=== PATIENT | female | born 1960 | race Caucasian/White ===

== ENCOUNTER 2019-04-29 13:40 | Outpatient (CLI) | payer BC | END 2019-04-29 23:59 | disposition home or self-care (01) | LOC: WOUND 13:40 | PROVIDERS: ATTEND Family Medicine | DX: T81.31XA Disruption of external operation (surgical) wound, not elsewhere classified, initial encounter (principal); C43.9 Malignant melanoma of skin, unspecified; I51.89 Other ill-defined heart diseases; E66.09 Other obesity due to excess calories; Z68.27 Body mass index [BMI] 27.0-27.9, adult; Z85.820 Personal history of malignant melanoma of skin; Y83.8 Other surgical procedures as the cause of abnormal reaction of the patient, or of later complication, without mention of misadventure at the time of the procedure; Y92.89 Other specified places as the place of occurrence of the external cause | CPT/HCPCS: 97597; 99204 ==

== ENCOUNTER → 2019-05-02 | Outpatient (CLI) | payer BC | END | disposition home or self-care (01) | LOC: WOUND 14:30 | PROVIDERS: ATTEND Internal Medicine | DX: T81.31XD Disruption of external operation (surgical) wound, not elsewhere classified, subsequent encounter (principal); I51.89 Other ill-defined heart diseases; C43.9 Malignant melanoma of skin, unspecified; E66.09 Other obesity due to excess calories; Z68.27 Body mass index [BMI] 27.0-27.9, adult; Z85.820 Personal history of malignant melanoma of skin; Y83.8 Other surgical procedures as the cause of abnormal reaction of the patient, or of later complication, without mention of misadventure at the time of the procedure | CPT/HCPCS: 97605 ==

== ENCOUNTER 2019-05-05 12:45 | Outpatient (CLI) | payer BC | END 2019-05-05 23:59 | disposition home or self-care (01) | LOC: WOUND 12:45 | PROVIDERS: ATTEND Internal Medicine Cardiovascular Disease | DX: T81.31XD Disruption of external operation (surgical) wound, not elsewhere classified, subsequent encounter (principal); I51.89 Other ill-defined heart diseases; C43.9 Malignant melanoma of skin, unspecified; E66.09 Other obesity due to excess calories; Z68.27 Body mass index [BMI] 27.0-27.9, adult; Z85.820 Personal history of malignant melanoma of skin; Y83.8 Other surgical procedures as the cause of abnormal reaction of the patient, or of later complication, without mention of misadventure at the time of the procedure | CPT/HCPCS: 97605 ==

== ENCOUNTER → 2019-05-09 | Outpatient (CLI) | payer BC | END | disposition home or self-care (01) | LOC: WOUND 14:27 | PROVIDERS: ATTEND Internal Medicine | DX: T81.31XD Disruption of external operation (surgical) wound, not elsewhere classified, subsequent encounter (principal); I51.89 Other ill-defined heart diseases; C43.9 Malignant melanoma of skin, unspecified; E66.09 Other obesity due to excess calories; Z68.27 Body mass index [BMI] 27.0-27.9, adult; Z85.820 Personal history of malignant melanoma of skin; Y83.8 Other surgical procedures as the cause of abnormal reaction of the patient, or of later complication, without mention of misadventure at the time of the procedure | CPT/HCPCS: 97605 ==

== ENCOUNTER → 2019-05-11 | Outpatient (CLI) | payer BC | END | disposition home or self-care (01) | LOC: WOUND 13:04 | PROVIDERS: ATTEND Internal Medicine | DX: T81.31XD Disruption of external operation (surgical) wound, not elsewhere classified, subsequent encounter (principal); C43.9 Malignant melanoma of skin, unspecified; I51.89 Other ill-defined heart diseases; E66.09 Other obesity due to excess calories; Z68.27 Body mass index [BMI] 27.0-27.9, adult; Z85.820 Personal history of malignant melanoma of skin; Y83.8 Other surgical procedures as the cause of abnormal reaction of the patient, or of later complication, without mention of misadventure at the time of the procedure | CPT/HCPCS: 99212 ==

== ENCOUNTER → 2019-05-13 | Outpatient (CLI) | payer BC | END | disposition home or self-care (01) | LOC: WOUND 14:01 | PROVIDERS: ATTEND Family Medicine | DX: T81.31XD Disruption of external operation (surgical) wound, not elsewhere classified, subsequent encounter (principal); C43.9 Malignant melanoma of skin, unspecified; I51.89 Other ill-defined heart diseases; E66.09 Other obesity due to excess calories; Z68.27 Body mass index [BMI] 27.0-27.9, adult; Z88.0 Allergy status to penicillin; Y83.8 Other surgical procedures as the cause of abnormal reaction of the patient, or of later complication, without mention of misadventure at the time of the procedure | CPT/HCPCS: 97597 ==

== ENCOUNTER 2019-05-20 09:30 | Outpatient (CLI) | payer BC | END 2019-05-20 23:59 | disposition home or self-care (01) | LOC: WOUND 09:30 | PROVIDERS: ATTEND Family Medicine | DX: T81.31XD Disruption of external operation (surgical) wound, not elsewhere classified, subsequent encounter (principal); C43.9 Malignant melanoma of skin, unspecified; I51.89 Other ill-defined heart diseases; E66.09 Other obesity due to excess calories; Z68.27 Body mass index [BMI] 27.0-27.9, adult; Z88.0 Allergy status to penicillin; Y83.8 Other surgical procedures as the cause of abnormal reaction of the patient, or of later complication, without mention of misadventure at the time of the procedure | CPT/HCPCS: 97602 ==

== ENCOUNTER → 2019-05-27 | Outpatient (CLI) | payer BC | END | disposition home or self-care (01) | LOC: WOUND 12:51 | PROVIDERS: ATTEND Family Medicine | DX: T81.31XD Disruption of external operation (surgical) wound, not elsewhere classified, subsequent encounter (principal); C43.9 Malignant melanoma of skin, unspecified; I51.89 Other ill-defined heart diseases; E66.09 Other obesity due to excess calories; Z68.27 Body mass index [BMI] 27.0-27.9, adult; Z88.0 Allergy status to penicillin; Y83.8 Other surgical procedures as the cause of abnormal reaction of the patient, or of later complication, without mention of misadventure at the time of the procedure | CPT/HCPCS: 17250 ==

== ENCOUNTER 2019-06-03 13:38 | Outpatient (CLI) | payer BC | END 2019-06-03 23:59 | disposition home or self-care (01) | LOC: WOUND 13:38 | PROVIDERS: ATTEND Family Medicine | DX: T81.31XD Disruption of external operation (surgical) wound, not elsewhere classified, subsequent encounter (principal); S31.000D Unspecified open wound of lower back and pelvis without penetration into retroperitoneum, subsequent encounter; C43.9 Malignant melanoma of skin, unspecified; I51.89 Other ill-defined heart diseases; E66.09 Other obesity due to excess calories; Z68.27 Body mass index [BMI] 27.0-27.9, adult; Y83.8 Other surgical procedures as the cause of abnormal reaction of the patient, or of later complication, without mention of misadventure at the time of the procedure; X58.XXXD Exposure to other specified factors, subsequent encounter | CPT/HCPCS: 99213 ==

== ENCOUNTER 2019-06-10 12:45 | Outpatient (CLI) | payer BC | END 2019-06-10 23:59 | disposition home or self-care (01) | LOC: WOUND 12:45 | PROVIDERS: ATTEND Family Medicine | DX: T81.31XD Disruption of external operation (surgical) wound, not elsewhere classified, subsequent encounter (principal); S31.000D Unspecified open wound of lower back and pelvis without penetration into retroperitoneum, subsequent encounter; C43.9 Malignant melanoma of skin, unspecified; I51.89 Other ill-defined heart diseases; E66.09 Other obesity due to excess calories; Z68.27 Body mass index [BMI] 27.0-27.9, adult; X58.XXXD Exposure to other specified factors, subsequent encounter; Y83.8 Other surgical procedures as the cause of abnormal reaction of the patient, or of later complication, without mention of misadventure at the time of the procedure | CPT/HCPCS: 97602; 99214 ==

== ENCOUNTER → 2019-06-17 | Outpatient (CLI) | payer BC | END | disposition home or self-care (01) | LOC: WOUND 13:06 | PROVIDERS: ATTEND Family Medicine | DX: T81.31XD Disruption of external operation (surgical) wound, not elsewhere classified, subsequent encounter (principal); C43.9 Malignant melanoma of skin, unspecified; I51.89 Other ill-defined heart diseases; L82.1 Other seborrheic keratosis; E66.09 Other obesity due to excess calories; Z68.27 Body mass index [BMI] 27.0-27.9, adult; Y83.8 Other surgical procedures as the cause of abnormal reaction of the patient, or of later complication, without mention of misadventure at the time of the procedure | CPT/HCPCS: 99214 ==

== ENCOUNTER 2019-07-01 14:22 | Outpatient (CLI) | payer BC | END 2019-07-01 23:59 | disposition home or self-care (01) | LOC: WOUND 14:22 | PROVIDERS: ATTEND Family Medicine | DX: T81.31XD Disruption of external operation (surgical) wound, not elsewhere classified, subsequent encounter (principal); C43.9 Malignant melanoma of skin, unspecified; I51.89 Other ill-defined heart diseases; L82.1 Other seborrheic keratosis; E66.09 Other obesity due to excess calories; Z68.27 Body mass index [BMI] 27.0-27.9, adult; Y83.8 Other surgical procedures as the cause of abnormal reaction of the patient, or of later complication, without mention of misadventure at the time of the procedure | CPT/HCPCS: 99213 ==